=== PATIENT | female | born 1970 | race African-American/Black ===

== ENCOUNTER 2020-09-22 05:18 | Emergency (ER) | payer MEDICAID ==
[~2020-09-22] VITALS: Ht 152.4 cm; Wt 72.6 kg
--- NOTE | 2020-09-22 05:32 | NUR ---
BIBSELF C/O UPPER ABDOMINAL PAIN RADIATING TO THE BACK. + N/V, - DIARRHEA. PT REPORTED HE HAD A GASTRIC SX BACK IN 2001 AND EVERSINCE SHE HAD MULTIPLE EPISODES OF BOWEL OBSTRUCTIONS AND MULTIPLE SURGERIES. PT CURRENTLY IS NPO DUE INABILITY TO TOLERATE PO INTAKE AND ON 24- HOUR TPN THROUGH [facility] PICC LINE. PT WAS PLACED ON A MONITOR. VSS. WILL CONT TO MONITOR ,
--- NOTE | 2020-09-22 06:04 | NUR ---
DR BERTA BAILEY AT BED SIDE
[2020-09-22 06:10] LABS: CALCIUM, SERUM 8.6 mg/dL (8.5-10.1); CREATININE 0.9 mg/dL (0.6-1.3); POTASSIUM 3.6 mmol/L (3.5-5.1)
[2020-09-22 06:15] LABS: ALBUMIN 3.5 g/dL (3.4-5.0); BILIRUBIN,DIRECT 0.1 mg/dL (0.0-0.2); BILIRUBIN,TOTAL 0.2 mg/dL (0.2-1.0); TOTAL PROTEIN, SERUM 7.3 g/dL (6.4-8.2)
[2020-09-22 06:27] LABS: BASOPHILS % (AUTO) 0.7 % (0.0-2.0); EOSINOPHILS % (AUTO) 5.1 % (0.0-6.0); HEMATOCRIT 28 % (33-45); LYMPHOCYTES # (AUTO) 0.7 /CMM (0.8-4.8); LYMPHOCYTES % (AUTO) 20.3 % (20.0-44.0); MEAN CORPUSCULAR HGB CONC 32 g/dl (31.0-36.0); MEAN CORPUSCULAR VOLUME 81 fL (82-100); MONOCYTES # (AUTO) 0.2 /CMM (0.1-1.30); MONOCYTES % (AUTO) 5.5 % (2.0-12.0); NEUTROPHILS # (AUTO) 2.5 /CMM (1.8-8.9); NEUTROPHILS % (AUTO) 68.4 % (43.0-81.0); PLATELET COUNT (AUTO) 246 /CMM (150-450); RED BLOOD CELL COUNT(AUTO) 3.47 MIL/uL (4.0-5.2); WHITE BLOOD COUNT (AUTO) 3.7 K/uL (4.3-11.0)
[2020-09-22] MEDS ORDERED: HYDROMORPHONE 1 MG/1 ML DISP.SYRIN ONE (06:27)
[2020-09-22] MEDS ORDERED: HYDROMORPHONE 1 MG/1 ML DISP.SYRIN IV ONE (06:30)
[2020-09-22] MEDS ORDERED: diphenhydrAMINE HCL 50 MG/ML VIAL ONE (06:30)
--- NOTE | 2020-09-22 06:37 | NUR ---
PT WAS TAKEN TO CT
--- NOTE | 2020-09-22 06:48 | NUR ---
BACK FROM CT
[2020-09-22] MEDS ORDERED: diphenhydrAMINE HCL 50 MG/ML VIAL IV ONE (07:00)
--- NOTE | 2020-09-22 07:35 | NUR ---
PT HAS PICC LINE. PER PT SHE IS USING PICC LINE FOR TPN AT HOME.
--- NOTE | 2020-09-22 07:38 | NUR ---
Patient discharged to home in stable condition. Written and verbal after care instructions given. Patient verbalizes understanding of instruction.
[2020-09-22 07:39] VITALS: BP 125/83
== END 2020-09-22 07:40 | disposition home or self-care (01) ==
LOC: ER 05:22
DX: R10.13 Epigastric pain (principal); R10.84 Generalized abdominal pain; R11.0 Nausea; Z98.890 Other specified postprocedural states; Z90.49 Acquired absence of other specified parts of digestive tract; Z88.0 Allergy status to penicillin; Z88.8 Allergy status to other drugs, medicaments and biological substances; Z88.6 Allergy status to analgesic agent
CPT/HCPCS: 36415; 74176; 80048; 80076; 83690; 85025; 96374; 96375; 99284; J1170; J1200

== ENCOUNTER 2023-03-20 21:24 | Emergency (ER) | payer MEDICAID ==
[~2023-03-20] VITALS: Ht 152.4 cm; Wt 68.0 kg
[2023-03-20] MEDS ORDERED: MORPHINE SULFATE INJ 2 MG/ML DISP.SYRIN IV ONE (22:00)
[2023-03-20] MEDS ORDERED: PANTOPRAZOLE 40 MG VIAL IV ONE (22:00)
[2023-03-20] MEDS ORDERED: PROMETHAZINE HCL 25 MG/SUPP.RECT RC ONE (22:00)
[2023-03-20] MEDS ORDERED: diphenhydrAMINE HCL 50 MG/ML VIAL IV ONE ×2 (22:00→23:30)
[2023-03-20] MEDS ORDERED: IV NS 0.9% 1,000 ML IV ONE (22:00)
--- NOTE | 2023-03-20 22:01 | NUR ---
BLOOD DRAWN AND SENT TO LAB
[2023-03-20] MEDS ORDERED: diphenhydrAMINE HCL 50 MG/ML VIAL ONE ×2 (22:06→23:17)
[2023-03-20] MEDS ORDERED: PANTOPRAZOLE 40 MG VIAL ONE (22:07)
[2023-03-20] MEDS ORDERED: MORPHINE SULFATE INJ 4 MG/ML DISP.SYRIN ONE (22:07)
--- NOTE | 2023-03-20 22:20 | NUR ---
ADDENDUM: Intravenous End Time Documentation: Normal saline 1 liter (IV-WO) : start time:2219 ; end time:2319 : IV site:PICC LINE, NAYA Port # 1
[2023-03-20 22:22] LABS: BASOPHILS % (AUTO) 0.6 % (0.0-2.0); EOSINOPHILS % (AUTO) 6.6 % (0.0-6.0); HEMATOCRIT 28 % (33-45); HEMOGLOBIN 9.1 g/dL (11.5-14.8); LYMPHOCYTES # (AUTO) 0.8 K/uL (0.8-4.8); LYMPHOCYTES % (AUTO) 24.6 % (20.0-44.0); MEAN CORPUSCULAR HGB CONC 32 g/dl (31.0-36.0); MEAN CORPUSCULAR VOLUME 83 fL (82-100); MONOCYTES # (AUTO) 0.3 K/uL (0.1-1.30); MONOCYTES % (AUTO) 8.6 % (2.0-12.0); NEUTROPHILS # (AUTO) 1.9 K/uL (1.8-8.9); NEUTROPHILS % (AUTO) 59.6 % (43.0-81.0); PLATELET COUNT (AUTO) 243 K/uL (150-450); RED BLOOD CELL COUNT(AUTO) 3.37 MIL/uL (4.0-5.2); WHITE BLOOD COUNT (AUTO) 3.1 K/uL (4.3-11.0)
[2023-03-20 22:34] LABS: CALCIUM, SERUM 9.3 mg/dL (8.5-10.1); CARBON DIOXIDE 29 mmol/L (21-32); CHLORIDE 105 mmol/L (98-107); GLUCOSE 84 mg/dL (74-106); SODIUM SERUM 141 mmol/L (136-145); UREA NITROGEN, BLOOD 20 mg/dL (7-18)
[2023-03-20 22:49] LABS: ALANINE AMINOTRANSFERASE 15 U/L (12-78); ALBUMIN 3.5 g/dL (3.4-5.0); ASPARTATE AMINOTRANSFERASE 19 U/L (15-37); BILIRUBIN,TOTAL 0.1 mg/dL (0.2-1.0); LIPASE 53 U/L (73-393); TOTAL PROTEIN, SERUM 7.1 g/dL (6.4-8.2)
[2023-03-20] MEDS ORDERED: CT SWABBABLE VALVE TRANS SET 1 EA INFUS.SET MC ONE (22:49)
[2023-03-20] MEDS ORDERED: IOHEXOL-300 100 ML VIAL IV ONE (22:49)
[2023-03-20] MEDS ORDERED: IV NS 0.9% 250 ML IV ONE (22:49)
[2023-03-20 22:56] LABS: ALKALINE PHOSPHATASE < 10 U/L (46-116)
[2023-03-20] MEDS ORDERED: HYDROMORPHONE 1 MG/1 ML DISP.SYRIN IV ONE (23:00)
[2023-03-20] MEDS ORDERED: HYDROMORPHONE 1 MG/1 ML DISP.SYRIN ONE (23:11)
--- NOTE | 2023-03-20 23:21 | NUR ---
PT TAKEN TO CT VIA [facility]
--- NOTE | 2023-03-20 23:22 | NUR ---
room 315-1
--- NOTE | 2023-03-20 23:38 | NUR ---
PT RETURNED TO ER BED [address]
[2023-03-21] MEDS ORDERED: HYDROMORPHONE 1 MG/1 ML DISP.SYRIN ONE (00:28)
[2023-03-21] MEDS ORDERED: HYDROMORPHONE 1 MG/1 ML DISP.SYRIN IV ONE (00:30)
--- NOTE | 2023-03-21 02:00 | NUR ---
Patient discharged to home in stable condition. Written and verbal after care instructions given. Patient verbalizes understanding of instruction.
[2023-03-21 02:18] VITALS: BP 131/84
== END 2023-03-21 02:19 | disposition home or self-care (01) ==
LOC: ER 21:24
DX: D50.0 Iron deficiency anemia secondary to blood loss (chronic) (principal); D72.819 Decreased white blood cell count, unspecified; R10.9 Unspecified abdominal pain; R11.2 Nausea with vomiting, unspecified; Z88.0 Allergy status to penicillin; Z88.8 Allergy status to other drugs, medicaments and biological substances
CPT/HCPCS: 99285; 71260; 96374; 96375; 96361; 96376; 74177; 85025; 80048; 83605; 83690; 80076; 36415; 85730; J1200 ×2; J2270; J7030; J7050; C9113; A4223; Q9967; J1170 ×2

== ENCOUNTER 2024-02-18 01:06 | Inpatient (IN) | payer MEDICAID, OTHER ==
[~2024-02-18] VITALS: Ht 154.9 cm; Wt 69.6 kg
[2024-02-18] MEDS ORDERED: OCTREOTIDE 100 MCG/ML VIAL ONE (02:24)
[2024-02-18] MEDS ORDERED: HYDROMORPHONE 1 MG/1 ML DISP.SYRIN ONE ×2 (02:25→03:55)
[2024-02-18] MEDS: OCTREOTIDE 50 MCG/ML AMPUL IV ONE (02:26)
[2024-02-18] MEDS: HYDROMORPHONE 1 MG/1 ML DISP.SYRIN IV ONE ×2 (02:26→03:55)
[2024-02-18] MEDS: IV NS 0.9% 500 ML BAG IV ONE (02:26)
[2024-02-18] MEDS ORDERED: PROMETHAZINE HCL 12.5 MG/SUPP.RECT RC ONE (02:43)
[2024-02-18] MEDS: PROMETHAZINE HCL 25 MG/SUPP.RECT RC ONE ×2 (02:45→03:56)
[2024-02-18 02:51] LABS: BASOPHILS % (AUTO) 0.6 % (0.0-2.0); EOSINOPHILS # (AUTO) 0.1 K/uL (0.0-0.7); EOSINOPHILS % (AUTO) 5.5 % (0.0-6.0); HEMATOCRIT 26 % (33-45); HEMOGLOBIN 8.4 g/dL (11.5-14.8); LYMPHOCYTES # (AUTO) 0.5 K/uL (0.8-4.8); LYMPHOCYTES % (AUTO) 23.4 % (20.0-44.0); MEAN CORPUSCULAR HEMOGLOBIN 28 PG (26.0-33.0); MEAN CORPUSCULAR HGB CONC 32 g/dl (31.0-36.0); MEAN CORPUSCULAR VOLUME 86 fL (82-100); MONOCYTES # (AUTO) 0.2 K/uL (0.1-1.30); MONOCYTES % (AUTO) 11.8 % (2.0-12.0); NEUTROPHILS # (AUTO) 1.2 K/uL (1.8-8.9); NEUTROPHILS % (AUTO) 58.7 % (43.0-81.0); PLATELET COUNT (AUTO) 207 K/uL (150-450); RED BLOOD CELL COUNT(AUTO) 3.05 MIL/uL (4.0-5.2); RED CELL DISTRIBUTION WIDTH 17.3 % (11.5-15.0)
[2024-02-18 02:59] LABS: INR 1.02 (0.91-1.10); PROTHROMBIN TIME 10.8 SECS (9.2-11.1)
[2024-02-18 03:00] LABS: CARBON DIOXIDE 26 mmol/L (21-32); CHLORIDE 105 mmol/L (98-107); CREATININE 1.1 mg/dL (0.6-1.3); GLUCOSE 96 mg/dL (74-106); SODIUM SERUM 138 mmol/L (136-145); UREA NITROGEN, BLOOD 10 mg/dL (7-18)
[2024-02-18 03:05] LABS: ALANINE AMINOTRANSFERASE 19 U/L (12-78); ALBUMIN 3.6 g/dL (3.4-5.0); ALKALINE PHOSPHATASE 84 U/L (46-116); ASPARTATE AMINOTRANSFERASE 17 U/L (15-37); BILIRUBIN,DIRECT 0.1 mg/dL (0.0-0.2); BILIRUBIN,TOTAL 0.2 mg/dL (0.2-1.0); LIPASE 45 U/L (16-77); TOTAL PROTEIN, SERUM 7.2 g/dL (6.4-8.2)
[2024-02-18] MEDS ORDERED: POTASSIUM CL. PREMIX PERIPHER. 100 ML ONE (03:29)
[2024-02-18] MEDS: POTASSIUM CHLORIDE 10 MEQ/50 ML PREMIXED IVPB FOR PERIPHERAL LINE IV ONE (03:31)
[2024-02-18] MEDS ORDERED: ONDANSETRON HCL/PF 4 MG/2 ML VIAL IVP PRN (04:00)
[2024-02-18] MEDS ORDERED: MORPHINE SULFATE INJ 2 MG/ML DISP.SYRIN IV PRN (04:00)
[2024-02-18] MEDS ORDERED: ACETAMINOPHEN 325 MG TABLET PO PRN (04:00)
[2024-02-18] MEDS ORDERED: hydrALAZINE HCL IV 20 MG VIAL IV PRN (04:00)
[2024-02-18 05:30] VITALS: BP 133/86; TEMP 98.2; O2SAT 100
[2024-02-18] MEDS: IV NS 0.9% 1,000 ML IV SCH (05:49)
[2024-02-18] MEDS: HYDROMORPHONE 1 MG/1 ML DISP.SYRIN IV PRN (06:10)
[2024-02-18 07:00] VITALS: BP 119/87; TEMP 97.9; O2SAT 100
[2024-02-18 07:31] LABS: HEMOGLOBIN 8.4 g/dL (11.5-14.8)
[2024-02-18] MEDS ORDERED: DIPH50CA37 PO (08:38)
[2024-02-18] MEDS ORDERED: PROM25TA15 PO (08:38)
[2024-02-18] MEDS: DOCUSATE SODIUM LIQ 100 MG/10 ML UDC PO SCH (09:00)
[2024-02-18] MEDS: POLYETHYLENE GLYCOL 3350 17 GM POWD.PACK PO SCH (09:00)
[2024-02-18] MEDS: PANTOPRAZOLE 40 MG VIAL IV SCH (09:31)
[2024-02-18] MEDS ORDERED: POTASSIUM CHLORIDE 20 MEQ TAB.PRT.SR PO SCH (11:30)
[2024-02-18 12:00] VITALS: BP 112/76; TEMP 97.7; O2SAT 100
[2024-02-18] MEDS ORDERED: DEXTROSE 10% IN WATER 250 ML BAG IV PRN (13:30)
[2024-02-18 13:32] LABS: HEMOGLOBIN 7.4 g/dL (11.5-14.8)
[2024-02-18] MEDS: diphenhydrAMINE HCL 50 MG/ML VIAL IV PRN (13:37)
[2024-02-18] MEDS: BLOOD SUGAR DIAGNOSTIC 1 EACH STRIP IN SCH (13:38)
[2024-02-18] MEDS: POTASSIUM CL. PREMIX PERIPHER. 50 ML IV SCH (13:38)
[2024-02-18] MEDS ORDERED: diphenhydrAMINE HCL 50 MG CAPSULE PO PRN (14:00)
[2024-02-18] MEDS: DEXTROSE 10% IN WATER 250 ML IV PRN (14:26)
== END 2024-02-18 15:30 | disposition home or self-care (01) | DRG 242 ==
LOC: EDUNIT# 01:06 → ER 01:10 → TELE 04:31
PROVIDERS: ADMIT Nurse Practitioner Acute Care; ATTEND Nurse Practitioner Acute Care
DX: K22.6 Gastro-esophageal laceration-hemorrhage syndrome (principal); D62 Acute posthemorrhagic anemia; D72.819 Decreased white blood cell count, unspecified; Z88.0 Allergy status to penicillin; Z90.49 Acquired absence of other specified parts of digestive tract; Z98.84 Bariatric surgery status; K59.09 Other constipation; Z20.822 Contact with and (suspected) exposure to COVID-19; Z86.718 Personal history of other venous thrombosis and embolism
CPT/HCPCS: 36415; 71045-TC; 80048-TC; 80076-TC; 83690-TC; 84484-TC; 85025-TC; 85027-TC; 85730-TC; 86850-TC; A4223; C9113; G0378; J1170; J1200; J2354; J3480; J7030; J7040

== ENCOUNTER 2024-02-26 13:59 | Emergency (ER) | payer MEDICAID ==
[~2024-02-26] VITALS: Ht 152.4 cm; Wt 61.2 kg
[~2024-02-26 13:59] MED LIST: DIPH50CA37 PO; PROM25TA15 PO
[2024-02-26] MEDS: IV NS 0.9% 1,000 ML BAG IV ONE (14:30)
[2024-02-26] MEDS: PANTOPRAZOLE 80 MG in IV NS 0.9% 100 ML IV ONE (15:10)
[2024-02-26] MEDS: HYDROMORPHONE 1 MG/1 ML DISP.SYRIN IV ONE ×2 (15:10→16:27)
[2024-02-26] MEDS ORDERED: HYDROMORPHONE 1 MG/1 ML DISP.SYRIN ONE ×3 (15:10→16:26)
[2024-02-26 15:14] LABS: BASOPHILS % (AUTO) 0.2 % (0.0-2.0); EOSINOPHILS # (AUTO) 0.1 K/uL (0.0-0.7); EOSINOPHILS % (AUTO) 2.5 % (0.0-6.0); HEMATOCRIT 26 % (33-45); HEMOGLOBIN 8.6 g/dL (11.5-14.8); LYMPHOCYTES # (AUTO) 0.5 K/uL (0.8-4.8); LYMPHOCYTES % (AUTO) 17.9 % (20.0-44.0); MEAN CORPUSCULAR HEMOGLOBIN 27 PG (26.0-33.0); MEAN CORPUSCULAR HGB CONC 33 g/dl (31.0-36.0); MEAN CORPUSCULAR VOLUME 83 fL (82-100); MONOCYTES # (AUTO) 0.2 K/uL (0.1-1.30); MONOCYTES % (AUTO) 7.9 % (2.0-12.0); NEUTROPHILS % (AUTO) 71.5 % (43.0-81.0); PLATELET COUNT (AUTO) 187 K/uL (150-450); RED CELL DISTRIBUTION WIDTH 17.4 % (11.5-15.0); WHITE BLOOD COUNT (AUTO) 2.9 K/uL (4.3-11.0)
[2024-02-26] MEDS: PROMETHAZINE HCL 25 MG/SUPP.RECT RC ONE (15:46)
[2024-02-26 15:53] LABS: CALCIUM, SERUM 8.7 mg/dL (8.5-10.1); POTASSIUM 3.9 mmol/L (3.5-5.1)
[2024-02-26 17:05] VITALS: BP 122/84; TEMP 98.4; O2SAT 98
[2024-02-26 17:16] LABS: PARTIAL THROMBOPLASTIN TIME 25.3 SEC (24.3-34.3); PROTHROMBIN TIME 10.6 SECS (9.2-11.1)
[2024-02-26 18:31] LABS: ANISOCYTOSIS 1+; HYPOCHROMASIA 1+; LYMPHOCYTES % (MANUAL) 24 % (16-48); MONOCYTES % (MANUAL) 8 % (0-11.0); NEUTROPHILS % (MANUAL) 68 (42-76); PLATELET ESTIMATE ADEQUATE
[2024-02-26 18:32] LABS: OVALOCYTES 1+; TARGET CELLS RARE
== END 2024-02-26 17:05 | disposition home or self-care (01) ==
LOC: ER 14:03
DX: K92.2 Gastrointestinal hemorrhage, unspecified (principal); R94.31 Abnormal electrocardiogram [ECG] [EKG]; K92.0 Hematemesis; K59.09 Other constipation; Z88.0 Allergy status to penicillin; Z90.49 Acquired absence of other specified parts of digestive tract; Z88.8 Allergy status to other drugs, medicaments and biological substances; D72.819 Decreased white blood cell count, unspecified; Z98.84 Bariatric surgery status; Z87.19 Personal history of other diseases of the digestive system; D50.0 Iron deficiency anemia secondary to blood loss (chronic); Z86.718 Personal history of other venous thrombosis and embolism; Z88.6 Allergy status to analgesic agent
CPT/HCPCS: 99285; 74176; 96374; 71045; 96361; 96375; 93005; 96376; 85025; 80048; 83690; 36415; 85730; 86850; 85007; J7030 ×2; C9113; J1170 ×3

== ENCOUNTER 2024-02-27 18:41 | Emergency (ER) | payer MEDICAID ==
[~2024-02-27] VITALS: Ht 152.4 cm; Wt 61.2 kg
[2024-02-27 19:06] VITALS: BP 135/106; TEMP 97.9; O2SAT 96
[2024-02-27] MEDS ORDERED: PROMETHAZINE HCL 25 MG/SUPP.RECT RC ONE (19:30)
== END 2024-02-27 19:46 | disposition left against medical advice (07) ==
LOC: ER 18:44
DX: R11.2 Nausea with vomiting, unspecified (principal); Z88.0 Allergy status to penicillin; Z88.8 Allergy status to other drugs, medicaments and biological substances; Z60.2 Problems related to living alone

== ENCOUNTER 2024-08-28 17:07 | Emergency (ER) | payer MEDICAID ==
[~2024-08-28] VITALS: Ht 152.4 cm; Wt 68.0 kg
[2024-08-28] MEDS ORDERED: PANTOPRAZOLE 40 MG VIAL ONE (17:58)
[2024-08-28] MEDS ORDERED: MORPHINE SULFATE INJ 2 MG/ML DISP.SYRIN ONE (17:58)
[2024-08-28] MEDS: MORPHINE SULFATE INJ 2 MG/ML DISP.SYRIN IV ONE (18:00)
[2024-08-28] MEDS ORDERED: PROMETHAZINE HCL 25 MG/SUPP.RECT RC PRN (18:00)
[2024-08-28] MEDS: PANTOPRAZOLE 40 MG VIAL IV ONE (18:00)
[2024-08-28 18:07] LABS: BASOPHILS % (AUTO) 0.7 % (0.0-2.0); EOSINOPHILS # (AUTO) 0.1 K/uL (0.0-0.7); EOSINOPHILS % (AUTO) 2.6 % (0.0-6.0); HEMATOCRIT 24 % (33-45); HEMOGLOBIN 7.9 g/dL (11.5-14.8); LYMPHOCYTES # (AUTO) 0.6 K/uL (0.8-4.8); MEAN CORPUSCULAR HEMOGLOBIN 28 PG (26.0-33.0); MEAN CORPUSCULAR HGB CONC 33 g/dl (31.0-36.0); MEAN CORPUSCULAR VOLUME 83 fL (82-100); MONOCYTES # (AUTO) 0.3 K/uL (0.1-1.30); MONOCYTES % (AUTO) 11.4 % (2.0-12.0); NEUTROPHILS # (AUTO) 1.7 K/uL (1.8-8.9); NEUTROPHILS % (AUTO) 64.3 % (43.0-81.0); PLATELET COUNT (AUTO) 216 K/uL (150-450); RED BLOOD CELL COUNT(AUTO) 2.88 MIL/uL (4.0-5.2); RED CELL DISTRIBUTION WIDTH 16.8 % (11.5-15.0); WHITE BLOOD COUNT (AUTO) 2.7 K/uL (4.3-11.0)
[2024-08-28 18:18] LABS: INR 1.07 (0.91-1.10)
[2024-08-28 18:21] LABS: ALBUMIN 3.4 g/dL (3.4-5.0); BILIRUBIN,TOTAL 0.2 mg/dL (0.2-1.0); POTASSIUM 3.7 mmol/L (3.5-5.1); TOTAL PROTEIN, SERUM 6.2 g/dL (6.4-8.2)
[2024-08-28 18:38] LABS: LYMPHOCYTES % (MANUAL) 21 % (16-48); NEUTROPHILS % (MANUAL) 64 (42-76)
[2024-08-28 18:39] LABS: EOSINOPHILS % (MANUAL) 3 % (0-4); MONOCYTES % (MANUAL) 12 % (0-11.0)
[2024-08-28] MEDS ORDERED: HYDROMORPHONE 1 MG/1 ML DISP.SYRIN ONE (19:56)
[2024-08-28] MEDS: HYDROMORPHONE 1 MG/1 ML DISP.SYRIN IV ONE (20:02)
[2024-08-28 20:24] LABS: HEMOGLOBIN 7.7 g/dL (11.5-14.8)
[2024-08-28 21:48] VITALS: BP 128/75; TEMP 98.1; O2SAT 96
== END 2024-08-28 21:49 | disposition home or self-care (01) ==
LOC: ER 17:08
DX: K56.609 Unspecified intestinal obstruction, unspecified as to partial versus complete obstruction (principal); K92.0 Hematemesis; D64.9 Anemia, unspecified; K22.6 Gastro-esophageal laceration-hemorrhage syndrome; Z98.84 Bariatric surgery status; Z60.2 Problems related to living alone; Z87.19 Personal history of other diseases of the digestive system; Z88.0 Allergy status to penicillin; Z88.6 Allergy status to analgesic agent; Z88.8 Allergy status to other drugs, medicaments and biological substances
CPT/HCPCS: 99284; 96374; 96375; 85025; 80048; 83690; 80076; 36415; 85730; 86850; 85027; 85007; J7030; J2470; J2270; J1171